=== PATIENT | female | born 1995 | race African-American/Black ===

== ENCOUNTER 2023-04-20 06:00 | Inpatient (IN) | payer OTHER ==
[2023-04-20 06:49] VITALS: BMI 40.3
[2023-04-20] MEDS ORDERED: fentaNYL 50 mcg/mL 1 mL Vial SLOW IVP PRN (07:08)
[2023-04-20] MEDS ORDERED: Misoprostol 200 MCG TAB PR PRN (07:08)
[2023-04-20] MEDS ORDERED: Methylergonovine 0.2 MG/ML VIAL IM PRN (07:10)
[2023-04-20] MEDS ORDERED: Carboprost 250 MCG/ML AMP IM PRN (07:11)
[2023-04-20] MEDS ORDERED: Diphenoxylate HCl/Atropine Tablet PO PRN (07:11)
[2023-04-20] MEDS ORDERED: Tranexamic Acid 1,000 MG/10 ML VIAL IVP PRN (07:13)
[2023-04-20] MEDS ORDERED: Oxytocin 30 units/NS 500 ML 500 ML IV SCH (07:15)
[2023-04-20] MEDS ORDERED: Promethazine HCl 25 MG/ML VIAL IM PRN ×2 (07:15→12:03)
[2023-04-20] MEDS ORDERED: Lidocaine 1% (PF) 30 ML VIAL SC PRN (07:15)
[2023-04-20] MEDS ORDERED: Ibuprofen 800 MG TAB PO PRN (07:15)
[2023-04-20] MEDS ORDERED: hydrALAZINE 20 MG/ML VIAL SLOW IVP PRN ×2 (07:15→16:52)
[2023-04-20] MEDS ORDERED: Oxytocin 30 units/NS 500 ML 500 ML IVPB SCH (07:15)
[2023-04-20] MEDS ORDERED: Ondansetron PF 4 MG/2 ML Vial IVP PRN ×3 (07:15→16:52)
[2023-04-20] MEDS ORDERED: Acetaminophen 500 MG TAB PO PRN (07:15)
[2023-04-20] MEDS: Lactated Ringer's 1,000 ML IV SCH ×3 (07:31→17:00)
[2023-04-20 08:20] LABS: Hematocrit 34.1 % (34.9-44.5); Hemoglobin 10.9 g/dL (12.0-15.5); Mean Corpuscular Hemoglobin 30.9 pg (27.0-33.0); Mean Corpuscular Volume 96.6 fl (81.6-98.3); Mean Platelet Volume 10.7 fl (7.4-10.4); Platelet Count 306 10x3/uL (150-450); Red Blood Cell (RBC) Count 3.53 10x6/uL (3.90-5.03); White Blood Cell (WBC) Count 7.7 10x3/uL (3.5-10.5)
[2023-04-20 08:52] LABS: Syphilis Antibody Nonreactive (Nonreactive); Syphilis Antibody Index 0.15 S/CO (<1.00 Non-Reactive)
[2023-04-20 08:53] LABS: HBSAg Index 0.15 S/CO (0-0.99); Hep B Surf Ag - L&D Non-Reactive S/CO (NonReactive)
[2023-04-20] MEDS ORDERED: fentaNYL/Ropivacaine Epidural 100 ML ONE (10:33)
[2023-04-20] MEDS ORDERED: Moisturizing Cream (Eucerin) 113 GM JAR TOP PRN (12:03)
[2023-04-20] MEDS ORDERED: ePHEDrine Sulfate 50 MG/10 ML VIAL SLOW IVP PRN (12:03)
[2023-04-20] MEDS ORDERED: Acetaminophen 325 MG TAB PO PRN (12:03)
[2023-04-20] MEDS ORDERED: Lactated Ringer's 500 ML IV PRN (12:03)
[2023-04-20] MEDS ORDERED: Naloxone HCl 0.4 mg/ml Vial IVP PRN ×2 (12:03)
[2023-04-20] MEDS ORDERED: diphenhydrAMINE 50 MG/ML VIAL IVP PRN (12:03)
[2023-04-20] MEDS ORDERED: fentaNYL 2 mcg/Ropivacaine 0.2% Epidural 100 ML CADD EPIDURAL SCH (12:15)
[2023-04-20] MEDS ORDERED: Communication Order-Pharmacy FS SCH (12:15)
[2023-04-20] MEDS ORDERED: Misoprostol 200 MCG TAB ONE (14:39)
[2023-04-20] MEDS ORDERED: Benzocaine-Menthol 82.5 ML CAN TOP PRN (16:52)
[2023-04-20] MEDS ORDERED: Lanolin Ointment 7 GM TUBE TOP PRN (16:52)
[2023-04-20] MEDS ORDERED: Boostrix 0.5 ML (Tdap) VIAL (>/=7 yrs of age) IM ONE (16:52)
[2023-04-20] MEDS ORDERED: Milk Of Magnesia 30 ML UDCUP PO PRN (16:52)
[2023-04-20] MEDS ORDERED: Bisacodyl 10 MG SUPP PR PRN (16:52)
[2023-04-20] MEDS ORDERED: diphenhydrAMINE 25 MG CAP PO PRN (16:52)
[2023-04-20] MEDS: Ferrous Sulfate 325 MG TAB PO SCH (17:11)
[2023-04-20] MEDS: Ibuprofen 800 MG TAB PO SCH ×2 (17:12→21:35)
[2023-04-20] MEDS: HYDROcodone/Acetaminophen 5/325 mg Tablet PO PRN (18:18)
[2023-04-20] MEDS: Docusate 100 MG CAP PO SCH (21:34)
[2023-04-21] MEDS: HYDROcodone/Acetaminophen 5/325 mg Tablet PO PRN ×2 (01:00→13:34)
[2023-04-21] MEDS: Ibuprofen 800 MG TAB PO SCH (05:30)
[2023-04-21] MEDS ORDERED: Ibuprofen 800 MG TAB PO SCH ×2 (06:00→14:00)
[2023-04-21] MEDS: Docusate 100 MG CAP PO SCH (08:23)
[2023-04-21] MEDS: Ferrous Sulfate 325 MG TAB PO SCH ×2 (08:23→16:35)
[2023-04-21] MEDS ORDERED: Prenatal Vitamin 1 TAB PO SCH (09:00)
[2023-04-21 11:37] VITALS: BP 123/57; TEMP 97.5
[2023-04-21] MEDS ORDERED: Bupivacaine 0.25% HCL 30 ML VIAL ONE (13:00)
[2023-04-21] MEDS ORDERED: ePHEDrine Sulfate 50 MG/10 ML VIAL ONE (13:00)
== END 2023-04-21 19:25 | disposition home or self-care (01) | DRG 807 ==
LOC: CSHLD 06:07 → CSHPP 15:52
PROVIDERS: ADMIT Family Medicine; ATTEND Family Medicine
PROC: 10E0XZZ Delivery of Products of Conception, External Approach (ICD-10-PCS; principal; 2023-04-20)
PROC: 10907ZC Drainage of Amniotic Fluid, Therapeutic from Products of Conception, Via Natural or Artificial Opening (ICD-10-PCS; 2023-04-20)
PROC: 0UQMXZZ Repair Vulva, External Approach (ICD-10-PCS; 2023-04-20)
DX: O48.0 Post-term pregnancy (principal); Z37.0 Single live birth; O71.82 Other specified trauma to perineum and vulva; Z3A.40 40 weeks gestation of pregnancy
CPT/HCPCS: 36415; 85027; 86780; 86850; 86900; 86901; 87340; J2590; J3010; J7120; S0020

== ENCOUNTER 2025-02-13 07:13 | Inpatient (IN) | payer OTHER ==
[2025-02-14] MEDS ORDERED: HYDROcodone/Acetaminophen 5/325 mg Tablet PO PRN (20:42)
[2025-02-14] MEDS ORDERED: Ibuprofen 800 MG TAB PO PRN (20:42)
[2025-02-14] MEDS ORDERED: Lidocaine 1% (PF) 30 ML VIAL SC PRN (20:42)
[2025-02-14] MEDS ORDERED: Tranexamic Acid 1,000 MG/10 ML VIAL IVP PRN (20:42)
[2025-02-14] MEDS ORDERED: Acetaminophen 500 MG TAB PO PRN (20:42)
[2025-02-14] MEDS ORDERED: Carboprost 250 MCG/ML AMP IM PRN (20:42)
[2025-02-14] MEDS ORDERED: Oxytocin 30 units/NS 500 ML 500 ML IV SCH (20:42)
[2025-02-14] MEDS ORDERED: hydrALAZINE 20 MG/ML VIAL SLOW IVP PRN (20:42)
[2025-02-14] MEDS ORDERED: Ondansetron PF 4 MG/2 ML Vial IVP PRN (20:42)
[2025-02-14] MEDS ORDERED: Methylergonovine 0.2 MG/ML VIAL IM PRN (20:42)
[2025-02-14] MEDS ORDERED: Diphenoxylate HCl/Atropine Tablet PO PRN (20:42)
[2025-02-14 21:39] VITALS: BMI 41.9
[2025-02-14 22:29] LABS: Hematocrit 32.3 % (34.9-44.5); Hemoglobin 10.6 g/dL (12.0-15.5); Mean Corpuscular Hemoglobin 31.6 pg (27.0-33.0); Mean Corpuscular Volume 96.4 fL (81.6-98.3); Platelet Count 296 10x3/uL (150-450); Red Blood Cell (RBC) Count 3.35 10x6/uL (3.90-5.03); White Blood Cell (WBC) Count 9.15 10x3/uL (3.5-10.5)
[2025-02-14 23:06] LABS: Hep B Surf Ag - L&D Non-Reactive S/CO (NonReactive); Syphilis Antibody Index 0.13 S/CO (<1.00 Non-Reactive)
[2025-02-15] MEDS: Penicillin G Potassium 5 MILL.UNITS in Sodium Chloride 0.9% 100 ML IVPB SCH (03:24)
[2025-02-15] MEDS: fentaNYL/Ropivacaine Epidural 100 ML ONE (03:25)
[2025-02-15] MEDS ORDERED: diphenhydrAMINE 50 MG/ML VIAL IVP PRN (04:10)
[2025-02-15] MEDS ORDERED: Acetaminophen 325 MG TAB PO PRN (04:10)
[2025-02-15] MEDS ORDERED: Ondansetron PF 4 MG/2 ML Vial IVP PRN ×2 (04:10→14:47)
[2025-02-15] MEDS ORDERED: Communication Order-Pharmacy FS SCH (04:15)
[2025-02-15] MEDS ORDERED: fentaNYL 2 mcg/Ropivacaine 0.2% Epidural 100 ML CADD EPIDURAL SCH (04:15)
[2025-02-15] MEDS: Penicillin G 2.5 MILL.units 2.5 MILL.UNITS in Premix 1 BAG IVPB SCH (07:35)
[2025-02-15] MEDS: Oxytocin 30 units/NS 500 ML 500 ML IV SCH (12:20)
[2025-02-15] MEDS: Albuterol 2.5 MG (3 mL) NEB NEB SCH (12:50)
[2025-02-15] MEDS ORDERED: hydrALAZINE 20 MG/ML VIAL SLOW IVP PRN (14:47)
[2025-02-15] MEDS ORDERED: diphenhydrAMINE 25 MG CAP PO PRN (14:47)
[2025-02-15] MEDS ORDERED: Albuterol 2.5 MG (3 mL) NEB NEB PRN (14:47)
[2025-02-15] MEDS ORDERED: Milk Of Magnesia 30 ML UDCUP PO PRN (14:47)
[2025-02-15] MEDS ORDERED: Bisacodyl 10 MG SUPP PR PRN (14:47)
[2025-02-15] MEDS: Boostrix 0.5 ML (Tdap) VIAL (>/=7 yrs of age) IM ONE (17:18)
[2025-02-15] MEDS: Ferrous Sulfate 325 MG TAB PO SCH (17:18)
[2025-02-15] MEDS: Ibuprofen 800 MG TAB PO SCH (17:34)
[2025-02-15] MEDS ORDERED: Bupivacaine 0.25% HCL 30 ML VIAL ONE (18:38)
[2025-02-15] MEDS: Witch Hazel 100 PAD JAR TOP SCH (20:34)
[2025-02-15] MEDS: HYDROcodone/Acetaminophen 5/325 mg Tablet PO PRN (21:56)
[2025-02-16] MEDS: Ibuprofen 800 MG TAB PO SCH (01:00)
[2025-02-16 12:10] VITALS: BP 136/63; TEMP 98.1
== END 2025-02-16 18:00 | disposition home or self-care (01) | DRG 807 ==
LOC: CSHLD 02-14 20:40 → CSHPP 02-15 14:50
PROVIDERS: ADMIT Family Medicine; ATTEND Family Medicine
PROC: 10E0XZZ Delivery of Products of Conception, External Approach (ICD-10-PCS; principal; 2025-02-15)
PROC: 4A1HXCZ Monitoring of Products of Conception, Cardiac Rate, External Approach (ICD-10-PCS; 2025-02-15)
DX: O99.214 Obesity complicating childbirth (principal); Z37.0 Single live birth; O99.824 Streptococcus B carrier state complicating childbirth; O99.52 Diseases of the respiratory system complicating childbirth; E06.3 Autoimmune thyroiditis; J45.30 Mild persistent asthma, uncomplicated; Z3A.40 40 weeks gestation of pregnancy; Z79.899 Other long term (current) drug therapy; Z79.82 Long term (current) use of aspirin; Z79.51 Long term (current) use of inhaled steroids
CPT/HCPCS: 51702; 85027; 86780; 86850; 86900; 86901; 87340; 94640; J0665; J2540; J2590; J7611